=== PATIENT | male | born 1985 | race Caucasian/White ===

== ENCOUNTER 2021-03-11 12:17 | Emergency (ER) | payer SELFPAY ==
[~2021-03-11] VITALS: Ht 172.7 cm; Wt 101.3 kg
[2021-03-11] MEDS ORDERED: LIPITOR40 MG PO (13:06)
[2021-03-11] MEDS ORDERED: LISINOPRIL-HCT1 EAC1 PO (13:06)
== END 2021-03-11 13:27 ==
LOC: ED 12:17
DX: T63.441A Toxic effect of venom of bees, accidental (unintentional), initial encounter (principal); I10 Essential (primary) hypertension; E78.5 Hyperlipidemia, unspecified; Z79.899 Other long term (current) drug therapy
CPT/HCPCS: 99282